=== PATIENT | female | born 1970 | race Caucasian/White ===

== ENCOUNTER 2021-05-17 14:26 | Emergency (ER) | payer OTHER ==
[2021-05-17 14:50] VITALS: BP 152/81; PULSE 83; TEMP 98.9; BMI 23.3
[2021-05-17 15:36] LABS: HCG,QUALITATIVE URINE Negative
[2021-05-17 15:46] LABS: BASO % 0.7 % (0-2.0); EOS % 1.9 % (0-4.5); HEMATOCRIT 28.2 % (32.4-45.2); HEMOGLOBIN 8.4 GM/dl (10.7-15.3); LYMPH % 22.1 % (8-40); MCH 20.8 pg (25.7-33.7); MCHC 29.9 g/dl (32.0-36.0); MEAN CELL VOLUME 69.7 fl (80-96); MEAN PLT VOLUME 11.1 fl (7.5-11.1); MONO % 7.2 % (3.8-10.2); NEUT % 68.1 % (42.8-82.8); PLATELET COUNT 232 10^3/uL (134-434); RBC 4.05 M/mm3 (3.60-5.2); RDW 19.1 % (11.6-15.6); WHITE BLOOD COUNT 8.2 K/mm3 (4.0-10.8)
[2021-05-17 15:49] LABS: ADD RBC MORPHOLOGY YES
[2021-05-17 15:55] LABS: ALK PHOS 49 U/L (45-117); ANION GAP 9 MMOL/L (8-16); BILIRUBIN,TOTAL 0.5 mg/dl (0.2-1); CALCIUM 8.7 mg/dl (8.5-10); CHLORIDE 101 mmol/L (98-107); CO2 25 mmol/L (21-32); CREATININE 0.6 mg/dl (0.55-1.3); GLUCOSE,RANDOM 89 mg/dl (74-106); SGOT/AST 18 U/L (15-37); SGPT/ALT 10 U/L (13-61); SODIUM 135 mmol/L (136-145); TOT PROT 6.9 g/dl (6.4-8.2)
[2021-05-17 16:06] LABS: INR 0.99 (0.82-1.09); PROTHROMBIN TIME (PATIENT) 11.1 SEC (10.2-13.0)
[2021-05-17 18:43] LABS: ANISOCYTOSIS 2+
[2021-05-17 18:44] LABS: PLATELET ESTIMATE ADEQUATE
== END 2021-05-17 17:18 | disposition home or self-care (01) ==
LOC: FER 14:26
DX: D64.9 Anemia, unspecified (principal); R07.9 Chest pain, unspecified
CPT/HCPCS: 36415; 71045-TC-FY; 80053; 81003; 81015; 82550; 84484; 84703; 85025; 85610; 85730; 86850; 86900; 86901; 87086; 93005; 99285-25

== ENCOUNTER 2022-09-30 11:00 | Emergency (ER) | payer OTHER ==
[2022-09-30 11:26] VITALS: BMI 23.8
[2022-09-30 12:47] LABS: HEMATOCRIT 42.8 % (32.4-45.2); HEMOGLOBIN 14.9 G/dL (10.7-15.3); MCH 32.5 pg (25.7-33.7); MCHC 34.8 g/dl (32.0-36.0); MEAN CELL VOLUME 93.4 fl (80-96); MEAN PLT VOLUME 9.4 fl (7.5-11.1); PLATELET COUNT 210.7 10^3/uL (134-434); RBC 4.58 10^6/uL (3.60-5.2); RDW 13.7 % (11.6-15.6)
[2022-09-30 13:12] LABS: CALCIUM 9.2 mg/dl (8.5-10)
[2022-09-30 13:15] LABS: ALBUMIN 3.8 g/dl (3.4-5.0); BILIRUBIN,TOTAL 0.6 mg/dl (0.2-1); CREATININE 0.6 mg/dl (0.55-1.3); TOT PROT 6.5 g/dl (6.4-8.2)
[2022-09-30 16:40] VITALS: BP 125/67; PULSE 66; RESP 15; TEMP 97.4
== END 2022-09-30 17:07 | disposition home or self-care (01) ==
LOC: FER 11:00
DX: R42 Dizziness and giddiness (principal)
CPT/HCPCS: 36415; 70450-TC; 70544-TC; 70547-TC; 70551-TC; 71046-TC-FY; 80053; 82550; 84484; 85027; 93005; 99285-25

== ENCOUNTER 2023-02-10 11:53 | Emergency (ER) | payer OTHER ==
[2023-02-10 12:03] VITALS: RESP 18; TEMP 97.8; BMI 24.0
[2023-02-10 12:46] LABS: HEMATOCRIT 46.2 % (32.4-45.2); HEMOGLOBIN 15.6 G/dL (10.7-15.3); MCH 32.5 pg (25.7-33.7); MCHC 33.9 g/dl (32.0-36.0); MEAN CELL VOLUME 96.1 fl (80-96); MEAN PLT VOLUME 9.7 fl (7.5-11.1); PLATELET COUNT 225.8 10^3/uL (134-434); RBC 4.81 10^6/uL (3.60-5.2); RDW 13.1 % (11.6-15.6); WHITE BLOOD COUNT 11.2 10^3/uL (4.0-10.8)
[2023-02-10 12:49] LABS: PLATELET ESTIMATE ADEQUATE
[2023-02-10 12:56] LABS: INR 0.97 (0.83-1.09); PROTHROMBIN TIME (PATIENT) 11.3 SEC (9.7-13.0)
[2023-02-10] MEDS ORDERED: DEXAMETHASONE LIQUID 0.5 MG/5 ML PO ONE (12:59)
[2023-02-10] MEDS ORDERED: CLINDAMYCIN HCL 300 MG CAPSULE PO ONE (12:59)
[2023-02-10 13:01] LABS: ALBUMIN 4.6 g/dl (3.4-5.0); BILIRUBIN,TOTAL 0.3 mg/dl (0.2-1); BLOOD UREA NITROGEN 12.2 mg/dl (7-18); CALCIUM 9.6 mg/dl (8.5-10.1); CREATININE 0.8 mg/dl (0.6-1.3); POTASSIUM 4.6 mmol/L (3.5-5.1); SGOT/AST 22.7 U/L (15-37); SGPT/ALT 20.5 U/L (7-52); TOT PROT 7.6 g/dl (6.4-8.2)
[2023-02-10] MEDS ORDERED: DEXAMETHASONE SOD PHOSPHATE/PF 10 MG/ML SDV ONE (13:01)
[2023-02-10] MEDS ORDERED: CLINDAMYCIN HCL 150 MG CAPSULE (FP) ONE (13:05)
[2023-02-10 13:25] VITALS: BP 138/75; PULSE 98
== END 2023-02-10 13:45 | disposition short-term general hospital (02) ==
LOC: FER 11:53 → SUPCPDRO 11:53 → FER 13:45
DX: R07.0 Pain in throat (principal); J36 Peritonsillar abscess
CPT/HCPCS: 36415; 70491-TC; 80053; 85027; 85610; 86850; 86900; 86901; 99285-25; Q9967